=== PATIENT | male | born 1950 ===

== ENCOUNTER 2024-12-03 02:26 | Inpatient (IN) | payer MEDICARE, BC ==
[2024-12-03 04:15] VITALS: BMI 25.7
[2024-12-03] MEDS ORDERED: Ondansetron PF 4 MG/2 ML Vial IVP PRN (04:48)
[2024-12-03] MEDS ORDERED: Acetaminophen 325 MG TAB PO PRN (04:48)
[2024-12-03] MEDS ORDERED: Calcium Carbonate 500 MG ChewTAB PO PRN (04:48)
[2024-12-03] MEDS ORDERED: Heparin 10,000 UNITS/ 10 ML VIAL ONE (04:56)
[2024-12-03] MEDS ORDERED: Heparin 10,000 UNITS/ 10 ML VIAL SLOW IVP SCH (05:00)
[2024-12-03 06:10] LABS: Anion Gap 13 mmol/L (10-20); BUN (Urea Nitrogen) 19 mg/dL (8.4-25.7); Calc. Creatinine Clearance 56 mL/min (70-130); Calcium 9.5 mg/dL (7.8-10.44); Carbon Dioxide 25 mmol/L (23-31); Chloride 104 mmol/L (98-107); Glucose 127 mg/dL (83-110); Potassium 4.3 mmol/L (3.5-5.1); Sodium 138 mmol/L (136-145)
[2024-12-03 06:22] LABS: #Basophils 0.07 10x3/uL (0.0-0.2); #Eosinophils 0.22 10x3/uL (0.0-0.7); #Monocytes 0.62 10x3/uL (0.11-0.59); #Neutrophils 4.47 10x3/uL (1.40-6.50); %Basophils 1.0 % (0.0-1.0); %Eosinophils 3.1 % (0.0-10.0); %Lymphocytes 24.0 % (21.0-51.0); %Monocytes 8.7 % (0.0-10.0); %Neutrophils 62.8 % (42.0-75.0); Hematocrit 40.8 % (42.0-52.0); Hemoglobin 13.5 g/dL (14.0-18.0); Mean Corpuscular Hemoglobin 28.7 pg (27.0-31.0); Mean Corpuscular Volume 86.6 fL (78.0-98.0); Platelet Count 278 10x3/uL (130-400); Red Blood Cell (RBC) Count 4.71 mill/uL (4.70-6.10); White Blood Cell (WBC) Count 7.12 10x3/uL (4.8-10.8)
[2024-12-03] MEDS: Lisinopril 10 MG TAB PO SCH (08:46)
[2024-12-03] MEDS: Isosorbide Mononitrate 60 MG ER.TAB PO SCH (08:46)
[2024-12-03] MEDS: metFORMIN 500 MG TAB PO SCH (08:46)
[2024-12-03] MEDS: Levothyroxine 175 MCG TAB PO SCH (08:46)
[2024-12-03] MEDS: Aspirin 81 mg Enteric Coated Tablet PO SCH (08:46)
[2024-12-03] MEDS ORDERED: Mometasone 200 MCG/Formoterol 5 MCG 120 PUFF INHALER INH PRN (11:48)
[2024-12-03 12:10] LABS: PTT Greater than 250.0 sec (22.9-36.1)
[2024-12-03] MEDS: Famotidine 20 MG TAB PO SCH (20:30)
[2024-12-04 06:07] LABS: ALT (SGPT) 11 U/L (Less than 45); AST (SGOT) 32 U/L (11-34); Albumin 4.0 g/dL (3.1-4.5); Alkaline Phosphatase 97 U/L (40-110); Anion Gap 17 mmol/L (10-20); BUN (Urea Nitrogen) 21 mg/dL (8.4-25.7); Bilirubin, Total 0.6 mg/dL (0.3-1.2); Calc. Creatinine Clearance 48 mL/min (70-130); Calcium 9.6 mg/dL (7.8-10.44); Carbon Dioxide 22 mmol/L (23-31); Chloride 102 mmol/L (98-107); Globulin 3.8 g/dL (2.4-3.5); Glucose 145 mg/dL (83-110); Potassium 4.3 mmol/L (3.5-5.1); Sodium 137 mmol/L (136-145)
[2024-12-04 16:54] LABS: Troponin I 0.921 ng/mL (< 0.028)
[2024-12-04] MEDS: Enoxaparin 80 MG (0.8 mL) SYRINGE SC SCH (19:34)
[2024-12-04 19:44] VITALS: BP 103/71; TEMP 98
[2024-12-05] MEDS ORDERED: Levothyroxine 175 MCG TAB PO SCH (06:00)
== END 2024-12-04 19:55 | disposition short-term general hospital (02) | DRG 303 ==
LOC: 2NO 04:11
PROVIDERS: ADMIT Student in an Organized Health Care Education/Training Program; ATTEND Emergency Medicine
DX: I25.110 Atherosclerotic heart disease of native coronary artery with unstable angina pectoris (principal); I50.32 Chronic diastolic (congestive) heart failure; F03.A18 Unspecified dementia, mild, with other behavioral disturbance; I11.0 Hypertensive heart disease with heart failure; I35.0 Nonrheumatic aortic (valve) stenosis; E03.9 Hypothyroidism, unspecified; E78.5 Hyperlipidemia, unspecified; Z95.0 Presence of cardiac pacemaker; Z79.82 Long term (current) use of aspirin; Z79.890 Hormone replacement therapy; Z79.899 Other long term (current) drug therapy
CPT/HCPCS: 36415; 80048; 80053; 84484; 85025; 85730; J1644; J1650